=== PATIENT | female | born 1965 | race Caucasian/White ===

== ENCOUNTER → 2017-10-11 | Outpatient (CLI) | payer OTHER ==
[~2017-10-11] MED LIST: ALLEGRA; CYCLOBENZAPRINE10 MG PO; ESTRADIOL1 MG PO; HYDROCODON-ACE1 EA12 PO; TYLENOL EXTRA500 MG; TYLENOL WITH C1 EACH PO
--- NOTE | 2017-10-11 14:14 | Diagnostic Imaging Report ---
EXAM: DXA BONE DENSITY INDICATIONS: SURGICAL FRACTURE COMPARISON: Bone mineral density 09/17/2013. FINDINGS: Proximal left femur total bone mineral density (BMD) (g/cm2):0.883 Femur T-score (standard deviation relative to young adult mean BMD): -0.5 Femur Z-score (standard deviation relative to age-matched control group):0.1 Proximal left femur neck bone mineral density (BMD) (g/cm2):0.771 Femur T-score (standard deviation relative to young adult mean BMD): -0.7 Femur Z-score (standard deviation relative to age-matched control group):0.2 Lumbar bone mineral density (BMD) (g/cm2):0.993 Lumbar T-score (standard deviation relative to young adult mean BMD): -0.5 Lumbar Z-score (standard deviation relative to age-matched control group):0.4 Change since prior exam (%): Femur:+3.6 Spine:+1.3 CONCLUSION: 1. Bone mineral density in the left femur is classified as normal. Fracture risk is not increased. 2. Bone mineral density in the spine is classified as normal. Fracture risk is not increased. World Health Organization Classification: *The Z-score is provided for informational purposes. The T-score is preferable for clinical decisions. When comparing exams, a change of >4% is considered statistically significant. SUGGESTED RECOMMENDATIONS: Normal \T\ Osteopenia:Consideration should be given to use of calcium supplementation, daily multiple vitamins and adequate exercise, as preventive measures against osteoporosis, if clinically indicated. Osteoporosis \T\ Severe Osteoporosis:In addition to the above, consideration should be given to medical therapy against osteoporosis, if clinically indicated. Yoshi Cummings M.D. Dictated by: Yoshi Cummings M.D. on 10/11/2017 at 14:23 Electronically approved by: Yoshi Cummings M.D. on 10/11/2017 at 14:23
== END ==
LOC: DX 07:48
PROVIDERS: ATTEND Internal Medicine
DX: Z13.820 Encounter for screening for osteoporosis (principal); Z87.311 Personal history of (healed) other pathological fracture
CPT/HCPCS: 77080

== ENCOUNTER → 2018-06-06 | Outpatient (CLI) | payer OTHER ==
--- NOTE | 2018-06-06 18:39 | Diagnostic Imaging Report ---
History: Headaches Comparison studies: None Technique: Axial images were obtained from the skull base to the vertex. Coronal and sagittal reconstructions obtained from the axial data. Dose modulation, iterative reconstruction, and/or weight based adjustment of the mA/kV was utilized to reduce the radiation dose to as low as reasonably achievable. Findings: Scalp/skull: No abnormalities. No fractures, blastic or lytic lesions. Extra-axial spaces: No masses. No fluid collections. Brain sulci: Appropriate for age. Ventricles: Normal in size and configuration. No hydrocephalus. Parenchyma: No abnormal densities. No masses, hemorrhage, acute or chronic cortical vascular insults. Sellar/suprasellar region: No abnormalities Craniocervical junction: Patent foramen magnum. No Chiari one malformation. Incidental findings:. Inflammatory changes opacify half of the left frontal sinus but do not extend into the ostium or frontonasal recess. There are minimal nonobstructing mucosal inflammatory changes on the right. Otherwise, the visualized ethmoid and sphenoid sinuses are clear. IMPRESSION: 1. No intracranial abnormalities. 2. Nonobstructing inflammatory changes in the left frontal sinus Signed by: Dr. Agusto Russo M.D. on 06/06/2018 6:35 PM
== END ==
LOC: CT 16:05
PROVIDERS: ATTEND Internal Medicine
DX: G43.001 Migraine without aura, not intractable, with status migrainosus (principal)
CPT/HCPCS: 70450

== ENCOUNTER → 2020-01-05 | Outpatient (CLI) | payer OTHER ==
--- NOTE | 2020-01-05 13:41 | Diagnostic Imaging Report ---
History: Neck and left arm pain for 7 months Comparison studies: None Technique: Sagittal T1, T2 and IR, axial T2 and axial gradient echo Intravenous contrast: None Findings: Alignment: Normal lordosis. No scoliosis. Cervicomedullary junction: No abnormalities. Patent foramen magnum. Soft tissues: No T2 hyperintense inflammatory changes. Spinal cord: Normal in size and signal from the foramen magnum through T4. Anterior cervical fusion with plate and screws at C5-6, without evidence of complication Partially visualized mucosal thickening of the left maxillary sinuses. Vertebrae: Normal in height and signal intensity. No fractures, infection or neoplasm. Degenerative changes: C2-C3: Disc degeneration with loss of T2 signal. Canal and foramina C3-C4: Disc degeneration with loss of T2 signal. Left uncinate process hypertrophy results in mild left foraminal narrowing with patent canal and right foramina C4-C5: Disc degeneration with loss of T2 signal. Left uncinate process hypertrophy with mild left foraminal narrowing patent canal and right foramina C5-C6: Mild left degenerative foraminal narrowing with patent canal and right foramina C6-C7: Disc degeneration with loss of T2 signal. Patent canal and foramina C7-T1: No abnormalities. IMPRESSION: 1. Anterior cervical fusion at C5-6 without evidence of complication. 2. Mild degenerative left foraminal narrowing at C3-4, C4-5 and C5-6. 3. Other mild degenerative changes with grossly patent canal and foramina. Signed by: DR Alex Steen M.D. on 01/05/2020 1:38 PM
== END ==
LOC: MRI 12:30
PROVIDERS: ATTEND Internal Medicine
DX: M54.12 Radiculopathy, cervical region (principal); M50.30 Other cervical disc degeneration, unspecified cervical region
CPT/HCPCS: 72141

== ENCOUNTER → 2021-09-25 | Outpatient (CLI) | payer OTHER ==
[~2021-09-25] MED LIST changes: +LOSARTAN-HCTZ1 EACH PO; +VIT D3 PO
== END ==
LOC: OR 07:54 → LAB 07:54 → EDSTATUS 10:00
PROVIDERS: ATTEND Internal Medicine Gastroenterology
DX: Z01.818 Encounter for other preprocedural examination (principal); Z86.010 Personal history of colon polyps; Z53.8 Procedure and treatment not carried out for other reasons; U07.1 COVID-19
CPT/HCPCS: 93005; U0002

== ENCOUNTER → 2022-06-18 | Day surgery (SDC) | payer OTHER ==
[2022-06-14 14:09] LABS: BASOPHILS # (AUTO) 0.1 (0.0-0.1); BASOPHILS % 1.3 % (0.0-1.0); EOSINOPHILS # (AUTO) 0.3 (0.0-0.4); EOSINOPHILS % 6.8 % (0.0-6.0); HEMATOCRIT 39.3 % (34.2-44.1); HEMOGLOBIN 12.6 g/dL (12.0-16.0); LYMPHOCYTES # (AUTO) 1.8 (1.0-3.2); LYMPHOCYTES % 40.6 % (18.0-39.1); MEAN CORPUSCULAR HEMOGLOBIN 31.3 pg (28-32); MEAN CORPUSCULAR HGB CONC 32.1 g/dL (31-35); MEAN CORPUSCULAR VOLUME 97.8 fL (81-99); MONOCYTES # (AUTO) 0.3 (0.2-0.8); MONOCYTES % 6.2 % (4.4-11.3); NEUTROPHILS % 45.1 % (38.7-80.0); PLATELET COUNT 238 x10e3/uL (140-360); RED BLOOD COUNT 4.02 x10e6/uL (3.6-5.1); RED CELL DISTRIBUTION WIDTH 12.5 % (11.7-14.4)
[~2022-06-18] MED LIST changes: +ASPIRIN81 MG PO; +FENTANYL CITRATE/PF 100MCG/2 ML INJ ONE; +LOSARTAN-HCTZ1 EAC1
[2022-06-18 12:40] VITALS: BP 119/65
== END | disposition home or self-care (01) ==
LOC: OR 07:23
PROVIDERS: ATTEND Specialist
DX: M65.311 Trigger thumb, right thumb (principal); I10 Essential (primary) hypertension; Z91.048 Other nonmedicinal substance allergy status; Z01.810 Encounter for preprocedural cardiovascular examination; Z01.812 Encounter for preprocedural laboratory examination; Z20.822 Contact with and (suspected) exposure to COVID-19; Z79.82 Long term (current) use of aspirin; Z79.899 Other long term (current) drug therapy; Z87.891 Personal history of nicotine dependence
CPT/HCPCS: 0223U; 26055; 36415; 85025; 93005; J0690; J3010